=== PATIENT | female | born 1970 | race Caucasian/White ===

== ENCOUNTER 2018-01-02 19:43 | Inpatient (IN) | payer BC, OTHER ==
[2018-01-02 20:18] LABS: #Basophils 0.1 thou/uL (0.0-0.2); #Lymphocytes 1.4 thou/uL (1.20-3.40); #Monocytes 0.6 thou/uL (0.11-0.59); %Basophils 1.4 % (0.0-1.0); %Eosinophils 0.3 % (0.0-10.0); %Lymphocytes 17.4 % (21.0-51.0); %Monocytes 7.4 % (0.0-10.0); %Neutrophils 73.5 % (42.0-75.0); Hemoglobin 14.2 g/dL (12.0-16.0); Mean Corpuscular HGB CONC 32.7 g/dL (32.0-36.0); Mean Corpuscular Hemoglobin 31.7 pg (27.0-31.0); Mean Corpuscular Volume 97.2 fl (81.0-99.0); Mean Platelet Volume 8.4 fL (7.4-10.4); Platelet Count 252 thou/uL (130-400); RBC Distribution Width 12.4 % (11.5-14.5); Red Blood Cell (RBC) Count 4.47 mill/uL (4.20-5.40); White Blood Cell (WBC) Count 8.2 thou/uL (4.8-10.8)
[2018-01-02 20:27] LABS: Bilirubin Negative (Negative); Blood, Urine Negative (Negative); Clarity Clear (Clear); Glucose, Urine (Dipstick) 500 mg/dL (Negative); Leukocyte Negative (Negative); Nitrite Negative (Negative); Protein, Urine (Dipstick) Negative (Neg-Trace); Specific Gravity, Urine 1.022 (1.002-1.036); Urobilinogen 0.2 mg/dL (0.2-1.0); pH, Urine 5.5 (5.0-9.0)
[2018-01-02 20:40] LABS: CKMB 1.5 ng/mL (0-6.6); Troponin I Less than 0.010 ng/mL (< 0.028)
[2018-01-02 20:54] LABS: Glucose 163 mg/dL (70-105); Lipase 28 U/L (8-78); Phosphorus 3.3 mg/dL (2.3-4.7)
[2018-01-02 20:56] LABS: Base Excess-Venous -16.1 mmol/L (0 (+/- 2.5)); CO2 Tension (PvCO2) 29.7 mmHg (41.0-51.0); Calcium, Ionized 1.07 mmol/L (1.12-1.32); Hemoglobin - Calc 14.5 g/dL (12.0-18.0); O2 Tension (PvO2) 106.5 mmHg (35.0-45.0); Potassium 4.2 mmol/L (3.4-4.7); T. Carbon Dioxide 11.9 mmol/L (1.0-85.0); pH (Venous) 7.176 (7.35-7.45); vO2 Saturation-calc 96.6 % (94-98)
[2018-01-02 20:57] LABS: ALT (SGPT) 25 U/L (8-55); AST (SGOT) 21 U/L (5-34); Albumin 4.4 g/dL (3.5-5.0); Alkaline Phosphatase 49 U/L (40-150); Anion Gap 25 mmol/L (10-20); BUN (Urea Nitrogen) 16 mg/dL (7.0-18.7); Bilirubin, Total 0.4 mg/dL (0.2-1.2); CK (CPK) 78 U/L (29-168); Calc. Creatinine Clearance 0 mL/min (70-130); Calcium 8.9 mg/dL (7.8-10.44); Carbon Dioxide 10 mmol/L (22-29); Chloride 106 mmol/L (98-107); Estimated GFR-MDRD 70; Glucose 161 mg/dL (70-105); Potassium 4.3 mmol/L (3.5-5.1); Protein, Total 7.4 g/dL (6.0-8.3); Sodium 137 mmol/L (136-145)
[2018-01-02] MEDS ORDERED: D5 1/2 NS w/20 mEq KCL 1,000 ML ONE (21:07)
[2018-01-02] MEDS ORDERED: Insulin Regular 300 UNITS/3 ML VIAL ONE (21:07)
[2018-01-02] MEDS ORDERED: Sodium Chloride 0.9% 100 ML ONE (21:24)
[2018-01-02] MEDS ORDERED: D5 1/2 NS w/20 mEq KCL 1,000 ML IV PRN (23:14)
[2018-01-02] MEDS ORDERED: Sodium Chloride 0.9% 1,000 ML IV PRN ×4 (23:14)
[2018-01-02] MEDS ORDERED: Dextrose 5% in Water 1,000 ML IV PRN (23:14)
[2018-01-02] MEDS ORDERED: Dextrose 5 %-0.45 % NaCl 1,000 ML IV PRN (23:14)
[2018-01-02] MEDS ORDERED: NS 0.9% w/ 20 MEQ KCL 1,000 ML/1,000 ML BAG IV PRN ×2 (23:14)
[2018-01-02] MEDS ORDERED: ADD ELECTROLYTE REPLACEMENT SET TO PROFILE FS SCH (23:15)
[2018-01-02] MEDS ORDERED: Dextrose 50% Abboject 50 ML SYRINGE SLOW IVP PRN (23:31)
[2018-01-02] MEDS ORDERED: Potassium Chloride 40 MEQ in Sodium Chloride 0.9% 250 ML 250 ML IVPB PRN (23:34)
[2018-01-02] MEDS ORDERED: Magnesium 2 GM/NS 0.9% 100 ML 2 GM in Premix Bag 1 BAG IVPB PRN (23:34)
[2018-01-02] MEDS ORDERED: Potassium Phosphate 9 MMOL in Sodium Chloride 0.9% 100 ML IVPB PRN (23:34)
[2018-01-02] MEDS ORDERED: Potassium Phosphate 15 MMOL in Sodium Chloride 0.9% 250 ML 250 ML IV PRN (23:34)
[2018-01-02] MEDS ORDERED: Magnesium Oxide 400 MG TAB PO PRN ×2 (23:34)
[2018-01-02] MEDS ORDERED: CCU ELECTROLYTE REPLACEMENT PROTOCOL FS PRN (23:34)
[2018-01-02] MEDS ORDERED: Potassium Phosphate 12 MMOL in Sodium Chloride 0.9% 250 ML 250 ML IV PRN (23:34)
[2018-01-02] MEDS ORDERED: Potassium Chloride 40 MEQ in Premix Bag 1 BAG IVPB PRN (23:34)
[2018-01-02] MEDS ORDERED: Potassium Chloride 20 MEQ TAB PO PRN (23:34)
[2018-01-02] MEDS ORDERED: Acetaminophen 325 MG TAB PO PRN (23:36)
[2018-01-02] MEDS ORDERED: Ondansetron HCl/PF 4 MG/2 ML Vial IVP PRN (23:36)
[2018-01-02] MEDS ORDERED: Ondansetron ODT 4 MG TAB SL PRN (23:36)
[2018-01-03 00:42] VITALS: BMI 24.3
[2018-01-03 01:28] LABS: ALT (SGPT) 20 U/L (8-55); AST (SGOT) 18 U/L (5-34); Albumin 3.6 g/dL (3.5-5.0); Alkaline Phosphatase 45 U/L (40-150); Anion Gap 11 mmol/L (10-20); BUN (Urea Nitrogen) 13 mg/dL (7.0-18.7); Bilirubin, Total 0.4 mg/dL (0.2-1.2); Calc. Creatinine Clearance 93 mL/min (70-130); Calcium 7.9 mg/dL (7.8-10.44); Carbon Dioxide 15 mmol/L (22-29); Estimated GFR-MDRD 80; Globulin 2.3 g/dL (2.4-3.5); Glucose 159 mg/dL (70-105); Potassium 4.4 mmol/L (3.5-5.1); Protein, Total 5.9 g/dL (6.0-8.3); Sodium 135 mmol/L (136-145)
[2018-01-03 01:34] LABS: Chloride 113 mmol/L (98-107)
--- NOTE | 2018-01-03 02:31 | PDOC.FPRHP ---
- History of Present Illness Chief Complaint: DKA History of Present Illness: Farhana Nair is a 47 year old F with a PMH of DMI who presents as transfer from [facility] ED for DKA. Patient sees sewer pipe cleaner regularly and has been complaint with her medications. She is on an insulin pump and has continuous glucose monitoring. She states that she started experiencing headache, nausea, and sore throat yesterday. She checked her blood sugar and it was in the 300s which is very high for her. She also checked her ketones, which were at the highest level. She took correction dose of insulin at that time. This morning, her fasting blood sugar was in the 80s. This morning her ketones were slightly lower than yesterday but still elevated. Her symptoms worsened today and she decided she needed to go to the ED. She was communicating with her Public Health Educator yesterday via email who recommended the correction dose and recommended holding her Jardiance. Patient states that she has never had DKA or been admitted to the hospital for her diabetes and is normally very well controlled. She states that nothing has been different, she has not started taking any medications or supplements. She does exercise frequently and alot of cardio exercises yesterday prior to the onset of symptoms. She also states that one to two weeks ago she had upper respiratory like symptoms, that have since resolved, with the exception of sore throat. Denies any recent steroid use. ED Course: She was started on DKA protocol at outside ED and transferred directly to [facility], room B10. - Allergies/Adverse Reactions Allergies Allergy/AdvReac Type Severity Reaction Status Date / Time Sulfa (Sulfonamide Allergy ITCHING Verified 01/02/18 23:22 Antibiotics) - Home Medications Medication Instructions Recorded Confirmed Type Aspirin [Aspirin Chewable] 81 mg PO DAILY 01/03/18 01/03/18 History Empagliflozin [Jardiance] 5 mg PO DAILY 01/03/18 01/03/18 History HumaLOG [HumaLOG] 10.7 unit SC DAILY 01/03/18 01/03/18 History Lactobacillus Acidophilus 1 capsule PO DAILY 01/03/18 01/03/18 History [Probiotic] Multivitamin [Daily Multiple 1 each PO DAILY 01/03/18 01/03/18 History Vitamin] Rosuvastatin [Crestor] 10 mg PO DAILY 01/03/18 01/03/18 History Ubidecarenone [Co Q-10] 10 mg PO DAILY 01/03/18 01/03/18 History Vitamin B Complex 1 cap PO DAILY 01/03/18 01/03/18 History - History PMHx: DMI, HLD PSHx: none FHx: DMI, brother Social: Denies tobacco, alcohol, drug use - Review of Systems General: reports: other (headache). denies: fever/chills, weight/appetite/ sleep changes, night sweats, fatigue Eyes: denies: eye pain, vision changes ENT: reports: other (sore throat). denies: nasal congestion, rhinorrhea Respiratory: denies: cough, congestion, shortness of breath, exercise intolerance Cardiovascular: denies: chest pain, palpitation, edema, paroxysmal nocturnal dyspnea, orthopnea Gastrointestinal: reports: nausea, abdominal pain. denies: vomiting, diarrhea, constipation Genitourinary: denies: incontinence, dysuria, polyuria Skin: denies: rashes, lesions, jaundice Musculoskeletal: denies: pain, tenderness, stiffness, swelling Neurological: denies: numbness, syncope, seizure, weakness Psychological: denies: anxiety, depression - Vital signs BP: 93/38 HR: 77 RR: 16 Tmax: 97.9 Pox: 97% on RA Wt: 66 kg - Physical Exam Constitutional: NAD, awake, alert and oriented, well developed HEENT: normocephalic and atraumatic, PERRLA, EOMI, conjunctiva clear, no scleral icterus, grossly normal vision, TM's clear and intact, grossly normal hearing, normal nasal mucosa, MMM, oropharynx clear, good dention Neck: supple, FROM, trachea midline, no LAD, no JVD Chest: no-tender to palpation Heart: RRR, normal S1/S2, no murmurs/rubs/gallops, pulses present, no edema Lungs: CTAB, no respiratory distress, good air movement, no rales/rhonchi Abdomen: soft, non-tender, bowel sounds present, no masses/distention Musculoskeletal: normal structure, normal tone, ROM grossly normal Neurological: no focal deficit, CN II-XII intact, normal sensation Skin: no rash/lesions, good turgor, capillary refill <2 seconds Heme/Lymphatic: no unusual bruising or bleeding, no purpura, no petechia Psychiatric: normal mood and affect, good judgment and insight, intact recent and remote memory FMR H&P: Results - Labs Result Diagrams: 01/02/18 20:11 01/03/18 16:12 Lab results: WBC 8.2 thou/uL (4.8-10.8) 01/02/18 20:11 Hgb 14.2 g/dL (12.0-16.0) 01/02/18 20:11 Hct 43.4 % (36.0-47.0) 01/02/18 20:11 MCV 97.2 fl (81.0-99.0) 01/02/18 20:11 Plt Count 252 thou/uL (130-400) 01/02/18 20:11 Neutrophils % 73.5 % (42.0-75.0) 01/02/18 20:11 VBG pCO2 29.7 mmHg (41.0-51.0) L 01/02/18 20:54 VBG pO2 106.5 mmHg (35.0-45.0) H 01/02/18 20:54 Sodium 135 mmol/L (136-145) L 01/03/18 01:04 Potassium 4.4 mmol/L (3.5-5.1) 01/03/18 01:04 Chloride 113 mmol/L (98-107) H 01/03/18 01:04 Carbon Dioxide 15 mmol/L (22-29) L 01/03/18 01:04 BUN 13 mg/dL (7.0-18.7) 01/03/18 01:04 Creatinine 0.77 mg/dL (0.6-1.1) 01/03/18 01:04 Glucose 159 mg/dL (70-105) H 01/03/18 01:04 Calcium 7.9 mg/dL (7.8-10.44) 01/03/18 01:04 Total Bilirubin 0.4 mg/dL (0.2-1.2) 01/03/18 01:04 AST 18 U/L (5-34) 01/03/18 01:04 ALT 20 U/L (8-55) 01/03/18 01:04 Alkaline Phosphatase 45 U/L (40-150) 01/03/18 01:04 Creatine Kinase 78 U/L (29-168) 01/02/18 20:31 CK-MB (CK-2) 1.5 ng/mL (0-6.6) 01/02/18 20:11 B-Natriuretic Peptide 65.8 pg/mL (0-100) 01/02/18 20:11 Serum Total Protein 5.9 g/dL (6.0-8.3) L 01/03/18 01:04 Albumin 3.6 g/dL (3.5-5.0) 01/03/18 01:04 Lipase 28 U/L (8-78) 01/02/18 20:31 Urine Ketones > or equal to 80 mg/dL (Negative) H 01/02/18 20:12 Urine Blood Negative (Negative) 01/02/18 20:12 Urine Nitrite Negative (Negative) 01/02/18 20:12 Ur Leukocyte Esterase Negative (Negative) 01/02/18 20:12 FMR H&P: A/P - Problem List (1) Diabetic ketoacidosis associated with type 1 diabetes mellitus Current Visit: Yes Status: Acute Code(s): E10.10 - TYPE 1 DIABETES MELLITUS WITH KETOACIDOSIS WITHOUT COMA (2) Hyperlipidemia Current Visit: Yes Status: Chronic Code(s): E78.5 - HYPERLIPIDEMIA, UNSPECIFIED - Plan (1) DKA - Initial anion gap of 21, glucose 161, K 4.3, urine ketones >80, ur glucose > 500, beta hydroxybutarate of 8.08 - Admit to IMCU - Possible cause could be recent URI vs elevated cortisol levels from recent strenuous exercise - Started on DKA protocol - Will continue q1h accuchecks - Continue q4h BMP (2) TIDM - Continue home regimen once gap closes - Continue home statin - Hold home jardiance CODE STATUS: FULL CODE Disposition/LOS: Admit to IMCU, anticipate discharge home after >48 admission FMR H&P: Upper Level - Pertinent history PCP: Loyd Patient is a 47yo CF with PMHx of T1DM and HLD who was transferred from [facility] ED for elevated blood sugars. States that yesterday her blood sugar was 324, which is very high for her. Emailed her sewer pipe cleaner who instructed her to give herself 2 correction doses and drink a lot of water. She also checked her ketones at that time and they were extremely high. Later that night her BS improved to 141 and her fasting sugar this AM was 86. However, her ketones continue to be high. She went to work but decided to not work out and had worsening symptomsnausea, VILLANUEVA, sore throat and racing HR. Denies any recent illness, fever, chills, N/V, diarrhea, cough, nasal congestion. Patient has an insulin pump and continuous glucose monitor. Her home basal dose is 10.7u qD [facility] ED: NS 1L bolus x2, D5-0.45%NaCl +K @ 250cc/hr, novolin R 6 units/hr - Pertinent findings T 98.3 BP 115/44 HR 88 RR 20 O2 97% on RA Wt. 68kg General: NAD, resting in bed HEENT: Heart: S1 S2, RRR Lungs: CTAB Abd: soft, NT/ND/BS+ Ext: no cyanosis or edema UA: + ketones, + glucose Beta-hydroxybutyrate: 8.08 A VB.176/29.7/106.5/10 - Plan Date/Time: 01/03/18222 1. DKA: Etiology unclear as no infectious source and insulin pump working properly. Compared her glucose monitor to our accuchecks and appropriate. Likely 2/2 overexertion from exercise. Cont DKA protocol. Accuchecks with self glucose monitor q1h. BMP q4H. 2. T1DM: cont home insulin pump and regimen once #1 resolved. Holding home jardiance as well. 3. HLD: cont home crestor. 4. Diet: NPO/CC 5. PPx: SCDs 6. Code Status: Full I, Peri Bull, have evaluated this patient and agree with findings/ plan as outlined by international recruiter resident. Pertinent changes/additions are listed here. Attending Addendum - Attending Addendum Date/Time: 01/03/182050 I personally evaluated the patient and discussed the management with Dr. Flynn and Dr. Bull. I agree with the History, Examination, Assessment and Plan documented above with any addition or exceptions noted below. 47 yo IDDM on continuous glucose and insulin infusion presents for admission due to DKA. Etiology unknown at this time. No significant s/sx of infection. Pump appears to be working. Has been started on new DM medication recently. Possible culprit. Will stop personal pump at this time. Continue insulin drip and protocol. Trend labs q 2 to 4 hours. Repeat ketones. Monitor closely. Will discuss case with rachael in AM. Rosa
[2018-01-03 06:36] LABS: Anion Gap 11 mmol/L (10-20); BUN (Urea Nitrogen) 8 mg/dL (7.0-18.7); Calc. Creatinine Clearance 95 mL/min (70-130); Calcium 7.9 mg/dL (7.8-10.44); Carbon Dioxide 14 mmol/L (22-29); Chloride 114 mmol/L (98-107); Estimated GFR-MDRD 82; Glucose 180 mg/dL (70-105); Potassium 4.2 mmol/L (3.5-5.1); Sodium 135 mmol/L (136-145)
[2018-01-03] MEDS: Ubidecarenone 50 MG CAP PO SCH (09:51)
[2018-01-03] MEDS: Rosuvastatin 10 MG TAB PO SCH (09:52)
[2018-01-03] MEDS: Stress 600 With Zinc 1 TAB PO SCH (09:52)
[2018-01-03] MEDS: Multivit, Therapeutic 1 TAB PO SCH (09:52)
[2018-01-03 11:06] LABS: Anion Gap 9 mmol/L (10-20); BUN (Urea Nitrogen) 7 mg/dL (7.0-18.7); Calc. Creatinine Clearance 99 mL/min (70-130); Calcium 8.2 mg/dL (7.8-10.44); Carbon Dioxide 18 mmol/L (22-29); Chloride 114 mmol/L (98-107); Estimated GFR-MDRD 86; Glucose 171 mg/dL (70-105); Sodium 137 mmol/L (136-145)
[2018-01-03] MEDS ORDERED: Insulin Glargine 5 UNITS in Pre-Filled Syringe 1 EACH SC SCH (11:45)
--- NOTE | 2018-01-03 11:46 | PDOC.FM ---
- Subjective Subjective: Patient resting comfortably this morning in no acute distress. Her labs have normalized at this time. She has been in contact with her vegetable specker who recommends stopping Jardiance. VSS, afebrile - Objective MAR Reviewed: Yes Vital Signs & Weight: Vital Signs (12 hours) Temp Pulse Resp BP BP Pulse Ox 01/03/18 08:01 97.7 F 75 21 H 92/49 L 100 01/03/18 08:00 97.7 F 75 21 H 100 01/03/18 03:57 97.8 F 79 17 92/44 L 95 01/03/18 01:00 73 16 99/39 L 99 Weight Weight 66.451 kg I&O: 01/02/18 01/03/18 01/04/18 06:59 06:59 06:59 Intake Total 1850 1340 Output Total 2400 0 Balance -550 1340 Result Diagrams: 01/02/18 20:11 01/03/18 10:28 <Jose Grajeda - Last Filed: 01/03/18 11:45> - Objective Vital Signs & Weight: Vital Signs (12 hours) Temp Pulse Resp BP BP Pulse Ox 01/03/18 11:48 98.5 F 71 21 H 100/46 L 98 01/03/18 08:01 97.7 F 75 21 H 92/49 L 100 01/03/18 08:00 97.7 F 75 21 H 100 01/03/18 03:57 97.8 F 79 17 92/44 L 95 Weight Weight 66.451 kg I&O: 01/02/18 01/03/18 01/04/18 06:59 06:59 06:59 Intake Total 1850 2480 Output Total 2400 2300 Balance -550 180 Result Diagrams: 01/02/18 20:11 01/03/18 10:28 <Rey Harris - Last Filed: 01/03/18 14:57> Phys Exam - Physical Examination Constitutional: NAD HEENT: moist MMs Neck: no nodes Respiratory: no wheezing, no rales Cardiovascular: RRR, no significant murmur Gastrointestinal: soft, non-tender Neurological: moves all 4 limbs Psychiatric: normal affect, A&O x 3 Skin: no rash <Jose Grajeda - Last Filed: 01/03/18 11:45> Dx/Plan (1) DKA (diabetic ketoacidoses) Code(s): E13.10 - OTH DIABETES MELLITUS WITH KETOACIDOSIS WITHOUT COMA Status : Resolved QualifierTitle: Diabetes mellitus type: type 2 Diabetes mellitus complication detail: without coma Qualified Code(s): E11.10 - Type 2 diabetes mellitus with ketoacidosis without coma Plan: -anion gap of 21, Beta hydroxybutyrate of 8 at outside facility -given insulin and 2L NS -patients gap closed overnight with the rest of her BMP remaining normal -BS of 150-180 overnight -no malfunctions in insulin pump, equipped with continuous glucose monitoring -likely etiology is 2/2 to medication, per endocrinology (2) DMII (diabetes mellitus, type 2) Status: Chronic Plan: -will cover with Lantus 5u and allow patient to eat -turn insulin drip off s/p 2 hours after insulin -will speak with her normal vegetable specker in the [place] to see how best to dose insulin (3) Hyperlipidemia Code(s): E78.5 - HYPERLIPIDEMIA, UNSPECIFIED Status: Chronic Plan: continue crestor <Jose Grajeda - Last Filed: 01/03/18 11:45> Attending Addendum - Attending Addendum Date/Time: 01/03/18 0617 I personally evaluated the patient and discussed the management with Dr. Grajeda. I agree with and repeated the History, Examination, Assessment and Plan documented above with any addition or exceptions noted below. Very pleasant patient and very knowledgeable of her diagnosis and treatment. Likely Jardiance induced DKA. Continue gtt, give lantus and transition. Will attempt to contact her primary vegetable specker. <Rey Harris - Last Filed: 01/03/18 14:57>
[2018-01-03] MEDS: Ibuprofen 800 MG TAB PO PRN ×2 (13:09→21:27)
[2018-01-03] MEDS: Sodium Chloride 0.45% 1,000 ML IV SCH (13:10)
[2018-01-03 14:43] LABS: Bilirubin Negative (Negative); Blood, Urine Negative (Negative); Clarity CLEAR (Clear); Glucose, Urine (Dipstick) 500 mg/dL (Negative); Leukocyte Negative (Negative); Nitrite Negative (Negative); Protein, Urine (Dipstick) Negative (Neg-Trace); Specific Gravity, Urine 1.009 (1.002-1.036); Urobilinogen 0.2 mg/dL (0.2-1.0); pH, Urine 5.5 (5.0-9.0)
[2018-01-03 16:39] LABS: Anion Gap 10 mmol/L (10-20); BUN (Urea Nitrogen) 7 mg/dL (7.0-18.7); Calc. Creatinine Clearance 108 mL/min (70-130); Calcium 8.2 mg/dL (7.8-10.44); Carbon Dioxide 19 mmol/L (22-29); Chloride 111 mmol/L (98-107); Estimated GFR-MDRD Greater than 90; Glucose 140 mg/dL (70-105); Potassium 3.9 mmol/L (3.5-5.1); Sodium 136 mmol/L (136-145)
--- NOTE | 2018-01-03 20:38 | CON ---
DATE OF CONSULTATION: 01/03/2018 SERVICE: Pulmonary Medicine. REASON FOR CONSULT: IMCU patient. HISTORY OF PRESENT ILLNESS: The patient is a 47-year-old white female who had 1-2 day history of inc reasing nausea and little aversion for food. She continued taking some of her medications. Her bloo d sugars started reading high. She tested her ketones at home and they were also elevated. She trie d to take the correction. The next morning, things will not quite as bad, but she felt worse clinica lly. As such, she presented to the emergency department. She was found to be in DKA. She was start ed on insulin drip. Overnight, her acidosis, nausea, and headache have all resolved. She is essenti ally back to her usual state of health. She does not have any focalizing infectious symptoms. She d enies any purulent drainage from her eyes, ears, nose or throat. She is not having a cough. She has no dyspnea with exertion. There is no orthopnea there. She is not having any chest discomfort or t achyarrhythmias. She does not have any hot, red, swollen joints, or new rashes. She denies having d ysuria or vaginal discharge. She indicates that she cannot get . PAST MEDICAL HISTORY: 1. Diabetes mellitus, type 1. 2. Dyslipidemia. PAST SURGICAL HISTORY: None. FAMILY HISTORY: Type 1 diabetes mellitus in her brother. SOCIAL HISTORY: Negative for alcohol, tobacco or illicit drug use. She has no exposure to chemicals , dust asbestos or tuberculosis. ALLERGIES: SULFA. MEDICATIONS: List of her inpatient medications were reviewed and heavily modified. PHYSICAL EXAMINATION: VITAL SIGNS: Afebrile, pulse 71, blood pressure 100/46, respirations 21, saturation 98% on room air. GENERAL: The patient is awake, alert, no apparent distress. LUNGS: Excellent air entry. There is no prolonged expiratory phase, wheeze, rhonchi, or crackles pr esent. HEART: Normal rate and regular. ABDOMEN: Soft, nontender, nondistended. Bowel sounds are positive. MUSCULOSKELETAL: No cyanosis or clubbing. No pitting in the bilateral lower extremities. NEUROLOGIC: Grossly nonfocal. LABORATORY DATA: BNP and troponin are both unremarkable. Originally, she had an elevated anion gap and a very low bicarbonate. The bicarbonate is trending in a good direction, chloride is up trending . Sodium is now normal. Anion gap has resolved. Creatinine 0.72 was never elevated. Liver functio n studies are unremarkable. Urinalysis is positive for ketonuria and glycosuria. Beta hydroxybutyri c acid 8.08. ASSESSMENT: 1. Diabetic ketoacidosis, likely secondary to viral gastroenteritis. 2. Headache, resolved. PLAN: The patient has a closed gap. She continues to have a persistent non-gap acidosis, likely sec ondary to IV fluid resuscitation. Her IV fluids will be deescalated to half normal saline at 50 mL p er hour. She can reinitiate her basal on her pump. We will increase diet as tolerated. Pulmonary w ill continue to follow along. I will repeat chemistries in roughly 6 hours to make certain that her gap is not opening back up.
[2018-01-04 05:31] LABS: Anion Gap 11 mmol/L (10-20); BUN (Urea Nitrogen) 11 mg/dL (7.0-18.7); Calc. Creatinine Clearance 115 mL/min (70-130); Carbon Dioxide 21 mmol/L (22-29); Chloride 111 mmol/L (98-107); Estimated GFR-MDRD Greater than 90; Glucose 166 mg/dL (70-105); Potassium 3.9 mmol/L (3.5-5.1); Sodium 139 mmol/L (136-145)
--- NOTE | 2018-01-04 06:51 | PDOC.FM ---
- Subjective Subjective: Pt seen at bedside in NAD. DEEPAK overnight. Pt notes she feels very well and denies VILLANUEVA, CP, SOB, abd pain, NVD. - Objective MAR Reviewed: Yes Vital Signs & Weight: Vital Signs (12 hours) Temp Pulse Resp BP Pulse Ox 01/04/18 04:00 97.9 F 61 18 95/58 L 98 01/04/18 00:00 97.9 F 66 18 104/63 96 01/03/18 20:00 98.1 F 73 18 108/67 96 Weight Weight 66.451 kg I&O: 01/02/18 01/03/18 01/04/18 06:59 06:59 06:59 Intake Total 1850 2840 Output Total 2400 2300 Balance -550 540 Result Diagrams: 01/02/18 20:11 01/04/18 04:20 <Margarito Crawford - Last Filed: 01/04/18 08:02> - Objective Vital Signs & Weight: Vital Signs (12 hours) Temp Pulse Resp BP Pulse Ox 01/04/18 08:00 98.5 F 64 20 96/50 L 98 01/04/18 04:00 97.9 F 61 18 95/58 L 98 01/04/18 00:00 97.9 F 66 18 104/63 96 Weight Weight 66.451 kg I&O: 01/03/18 01/04/18 01/05/18 06:59 06:59 06:59 Intake Total 1850 2840 Output Total 2400 2300 Balance -550 540 Result Diagrams: 01/02/18 20:11 01/04/18 04:20 <Rey Harris - Last Filed: 01/04/18 09:27> Phys Exam - Physical Examination Constitutional: NAD HEENT: moist MMs Respiratory: no wheezing, no rales, clear to auscultation bilateral Cardiovascular: RRR, no significant murmur Gastrointestinal: soft, non-tender Musculoskeletal: no edema Neurological: moves all 4 limbs Psychiatric: normal affect, A&O x 3 <Margarito Crawford - Last Filed: 01/04/18 08:02> Dx/Plan (1) Ketosis due to diabetes Code(s): E13.10 - OTH DIABETES MELLITUS WITH KETOACIDOSIS WITHOUT COMA Status : Acute Plan: -pt presented with normoglycemic ketosis and ketonuria -pt has been transitioned from insulin gtt back to home regimen insulin pump -glucose continues to be 140-180 -outpt division traffic superintendent recommended discontinuing jardiance -per endocrine recommendations, ketonuria has resolved so pt likely over acute episode (2) Hyperlipidemia Code(s): E78.5 - HYPERLIPIDEMIA, UNSPECIFIED Status: Chronic Plan: -continue statin - Plan Plan: dispo: Pt stable and doing well. Normoglycemic ketosis and ketonuria has resolved. Discharge home today, discontinue jardiance. <Margarito Crawford - Last Filed: 01/04/18 08:02> Attending Addendum - Attending Addendum Date/Time: 01/04/18926 I personally evaluated the patient and discussed the management with Dr. Crawford. I agree with and repeated the History, Examination, Assessment and Plan documented above with any addition or exceptions noted below. Ok for discharge with close follow up. <Rey Harris - Last Filed: 01/04/18 09:27>
[2018-01-04] MEDS: Multivit, Therapeutic 1 TAB PO SCH (07:50)
[2018-01-04] MEDS: Rosuvastatin 10 MG TAB PO SCH (07:50)
[2018-01-04] MEDS: Ubidecarenone 50 MG CAP PO SCH (07:53)
[2018-01-04] MEDS: Stress 600 With Zinc 1 TAB PO SCH (07:54)
[2018-01-04] MEDS: Sodium Chloride 0.45% 1,000 ML IV SCH (07:54)
[2018-01-04 08:14] VITALS: BP 96/50; TEMP 98.5
== END 2018-01-04 10:18 | disposition home or self-care (01) | DRG 639 ==
LOC: SCSER 19:43 → IMCU/EMU 22:55 → T4-A 01-03 17:48
PROVIDERS: ADMIT Student in an Organized Health Care Education/Training Program; ATTEND Student in an Organized Health Care Education/Training Program
DX: E10.10 Type 1 diabetes mellitus with ketoacidosis without coma (principal); E78.5 Hyperlipidemia, unspecified; A08.4 Viral intestinal infection, unspecified; R51 Headache
CPT/HCPCS: 36415; 36416; 80048; 80053; 81003; 82010; 82330; 82550; 82553; 82803; 83690; 83735; 83880; 84100; 84484; 85025; 85379; 93005; 94760; 96361; 96365; A4216; J1815; J7050

== ENCOUNTER 2019-04-22 13:05 | Observation (INO) | payer BC ==
[2019-04-22] MEDS ORDERED: Sodium Chloride 0.9% 1,000 ML IV SCH ×3 (13:30→18:00)
--- NOTE | 2019-04-22 15:14 | PDOC.FPRHP ---
- History of Present Illness Chief Complaint: Chest Tightness History of Present Illness: Mrs. Nair is a 48 y/o female with a history of DM1 controlled with an insulin pump and difficult to treat GERD who presents via direct-admit from [place] for evaluation of "chest tightness". During her work-up in [place], an initial EKG was negative but her blood glucose was found to be moderately elevated, nearing 400, thus clouding the picture on whether she was more at risk for ACS or DKA. When she got to the floor, a second EKG was ordered which showed no abnormalities, and her first round of troponins was negative. She denied any worrisome cardiopulmonary symptoms, as well as fevers, chills, abdominal pain, N/V/D. - Allergies/Adverse Reactions Allergies Allergy/AdvReac Type Severity Reaction Status Date / Time Sulfa (Sulfonamide Allergy ITCHING Verified 01/02/18 23:22 Antibiotics) - Home Medications Medication Instructions Recorded Confirmed Type Aspirin Chewable [Aspirin Chewable 81 mg PO DAILY 01/03/18 04/22/19 History Tablet] HumaLOG [HumaLOG Vial] 10.7 unit SC SEEPHYS 01/03/18 04/22/19 History Multivitamin [Daily Multiple 1 each PO DAILY 01/03/18 04/22/19 History Vitamin] Rosuvastatin [Crestor] 5 mg PO DAILY 01/03/18 04/22/19 History Vitamin B Complex 1 cap PO DAILY 01/03/18 04/22/19 History HumaLOG 0 unit SC TID-WM PRN 04/22/19 04/22/19 History Pantoprazole Sodium 40 mg PO DAILY 04/22/19 04/22/19 History Zantac 150 mg PO PRN PRN 04/22/19 04/22/19 History - History PMHx: DM1, GERD PSHx: Tubal Ligation FHx: Non-Contributory Social: Patient admits to social EtOH abuse, but denies tobacco and drug abuse. - Review of Systems General: reports: fever/chills, weight/appetite/sleep changes, night sweats Eyes: denies: vision changes ENT: reports: nasal congestion. denies: rhinorrhea Respiratory: denies: cough, congestion, shortness of breath, exercise intolerance Cardiovascular: reports: chest pain (Patient describes her chest pain as a "tightness", and compares it to a pervious episode of GERD). denies: palpitation, edema Gastrointestinal: denies: nausea, vomiting, diarrhea, constipation, abdominal pain, GI bleeding Genitourinary: reports: polyuria (Patient also admits to polydipsia). denies: incontinence, dysuria, discharge Skin: denies: rashes, lesions Musculoskeletal: denies: pain, stiffness, swelling Neurological: denies: numbness, seizure Psychological: denies: anxiety, depression - Vital signs BP: [100/52] HR: [65] RR: [20] Tmax: [97.9] Pox: [100]% on [Room] Wt: [75 kg] - Physical Exam Constitutional: NAD, awake, alert and oriented, well developed HEENT: normocephalic and atraumatic, PERRLA, EOMI, conjunctiva clear, no scleral icterus, grossly normal vision, grossly normal hearing, normal nasal mucosa -HEENT: Patient appeared to have dry mucous membranes Neck: supple, FROM, trachea midline, no LAD Chest: no-tender to palpation, no lesions Heart: RRR, normal S1/S2, no murmurs/rubs/gallops, pulses present Lungs: CTAB, no respiratory distress, good air movement, no rales/rhonchi Abdomen: soft, non-tender, no masses/distention Musculoskeletal: normal structure, normal tone, ROM grossly normal Neurological: no focal deficit, CN II-XII intact Skin: no rash/lesions -Skin: Cap Refill > 2 Seconds Heme/Lymphatic: no purpura, no petechia Psychiatric: normal mood and affect, good judgment and insight, intact recent and remote memory FMR H&P: A/P - Plan 1. DKA vs. ACS -Patient appears with difficult to describe feelings of "chest tightness" -Other more serious signs of cardiopulmonary compromise were negative - no N/V, changes in vision, SOB or syncopal episodes -No significant risk factors or FHx, other than DM1 -EKG performed in [place] was negative -Repeat EKG at [facility] was negative -Trops: Negative x1 -BG: ~400 -Patient was placed on moderate fluid resuscitation with NS -Patient was advised to utilize insulin pump within normal settings -2nd & 3rd Trops: Pending -UA: Pending -TSH: Pending -Lipid Panel: Pending -FSH: Pending -LH: Pending -Necessary to rule out other more worrisome causes of DKA prior to DC Code: Full Diet: CC Activity: As Tolerated Dispo: Patient most likely suffering from mild or already resolved DKA, admitted for Observation. Minimal fluid resuscitation started with advice to use insulin pump. Carbohydrate Conscious diet initiated with ambulation as tolerated. CMP appears within normal limits. Expected LOS < 24H FMR H&P: Upper Level - Pertinent history 48yo F with pmh of DM1 on pump, and esophagitis presents as direct admit for observation from clinic for hyperglycemia and hypovolemia. Reports hx of increased BG since she has had increased GERD symtpoms. Reports polydipsia and polyuria. Pt had BG over 300 in PCP clinic and ketones in urine and so pt presented to outside ER for stat labwork. There she was found to have normal anion gap and betahydroxybutyrate of 0.35. Pt also complains of worsening symptoms of GERD. Describes chest tightness. Currently she feels it is minimal. No SOB. EKG in PCP office was wnl. She has had EGD recently which showed esophagitis. Pt had not been taking protonix but last night restarted her home protonix and has sucralfate listed as home med as well. She has plans for esophageal pH testing on May 12. PMH: GERD, DM1 FHx: Grandfather and great grandfather had "heart issues" but did not of ND - Pertinent findings Physical exam: significant for somewhat reproducible chest tightness on chest wall palpation. Cracked lips. Vitals: reviewed and wnl Pertinent labs and testing: EKG wnl outpt, BG 295, K 4.3, Na 136, Chloride 101, bicarb 26, Cr 0.84 - Plan Date/Time: 04/22/19 1514 Hyperglycemia A- Pt uncontrolled currently on pump regimen that was previously controlled just a few hours ago. On most recent check BG in 100s range. No changes in diet. Etiology unclear , will have to workup. Pt is not menopausal but has tubes tied. P- will resume insulin via pump -agressive fluid ressusitation -BMP now and q3H -BG q1H -UA Chest pain, likely 2/2 GERD A- this has been a known problem that has worsened over the last month. Pt follows with cardiology. EKG in outside office wnl. HEART score 2. mildy reproducible on exam. P- repeat EKG -CXR -troponins -Protonix 40mg BID -GI cocktail now -sucralfate Dehydration A- as seen on physical exam. P- fluid resuscitation as above CODE: FULL PCP: Erick Duke pgy 2, have evaluated this patient and agree with findings/ plan as outlined by qa intern resident. Pertinent changes/additions are listed here.
[2019-04-22 15:17] VITALS: BMI 27.4
[2019-04-22 15:49] LABS: Troponin I Less than 0.010 ng/mL (< 0.028)
[2019-04-22] MEDS ORDERED: Acetaminophen 325 MG TAB PO PRN (16:42)
[2019-04-22] MEDS ORDERED: Ondansetron ODT 4 MG TAB PO PRN (16:42)
[2019-04-22] MEDS: Sodium Chloride 0.9% 1,000 ML IV SCH ×3 (17:53→20:39)
[2019-04-22] MEDS ORDERED: Mag-Al 1200 mg/1200 mg/30 ML UDCUP PO PRN (18:24)
[2019-04-22] MEDS ORDERED: Calcium Carbonate 500 MG ChewTAB PO PRN (18:24)
[2019-04-22 18:25] LABS: Troponin I Less than 0.010 ng/mL (< 0.028)
[2019-04-22] MEDS: Famotidine 20 MG TAB PO SCH (19:11)
[2019-04-22 19:25] LABS: Bilirubin Negative (Negative); Blood, Urine Negative (Negative); Clarity Clear (Clear); Glucose, Urine (Dipstick) Normal (Negative); Leukocyte Negative Leu/uL (Negative); Nitrite Negative (Negative); Protein, Urine (Dipstick) Negative (Neg-Trace); RBC/HPF 0-3 HPF (0-3); Squamous Epithelial 0-3 HPF (0-3); Urobilinogen Normal mg/dL (Less than 2); WBC/HPF 0-3 HPF (0-3)
[2019-04-22 19:32] LABS: Bacteria/HPF 1+ HPF (None Seen)
[2019-04-22 20:36] LABS: ALT (SGPT) 16 U/L (8-55); AST (SGOT) 17 U/L (5-34); Alkaline Phosphatase 52 U/L (40-150); Anion Gap 11 mmol/L (10-20); BUN (Urea Nitrogen) 12 mg/dL (7.0-18.7); Bilirubin, Total 0.4 mg/dL (0.2-1.2); Calc. Creatinine Clearance 102 mL/min (70-130); Carbon Dioxide 26 mmol/L (22-29); Chloride 106 mmol/L (98-107); Estimated GFR-MDRD 78; Globulin 2.6 g/dL (2.4-3.5); Glucose 151 mg/dL (70-105); Potassium 3.8 mmol/L (3.5-5.1); Protein, Total 6.6 g/dL (6.0-8.3); Sodium 139 mmol/L (136-145)
[2019-04-22] MEDS ORDERED: HumaLOG 300 UNITS/3 ML VIAL SC SCH (21:00)
[2019-04-22] MEDS ORDERED: Aspirin Chewable 81 MG TAB PO SCH (22:00)
[2019-04-22] MEDS ORDERED: Multivitamin W/ Minerals 1 TAB PO SCH (22:00)
[2019-04-22] MEDS: Rosuvastatin 10 MG TAB PO SCH (22:01)
[2019-04-22] MEDS: Stress 600 With Zinc 1 TAB PO SCH (22:02)
[2019-04-23] MEDS: Sodium Chloride 0.9% 1,000 ML IV SCH ×3 (03:04→17:58)
--- NOTE | 2019-04-23 04:16 | PDOC.FM ---
- Subjective Subjective: She did well overnight. Her blood sugars have come down 80s-150s. She is using her pump. She does not have the chest tightness, but she has not eaten breakfast this morning. She has a JEAN test scheduled in May. BM: 2 days ago. - Objective MAR Reviewed: Yes Vital Signs & Weight: Vital Signs (12 hours) Temp Pulse Resp BP Pulse Ox 04/23/19 02:35 97 04/22/19 23:59 98.2 F 67 20 95/53 L 97 04/22/19 19:35 97.7 F 67 21 H 97/52 L 99 Weight Weight 74.899 kg I&O: 04/21/19 04/22/19 04/23/19 06:59 06:59 06:59 Intake Total 1000 Balance 1000 Result Diagrams: 04/23/19 05:46 04/23/19 05:46 Phys Exam - Physical Examination Constitutional: NAD HEENT: PERRLA, moist MMs, oral pharynx no lesions Neck: supple, full ROM Respiratory: clear to auscultation bilateral Cardiovascular: RRR, no significant murmur Gastrointestinal: soft, non-tender, positive bowel sounds Musculoskeletal: no edema, pulses present Neurological: moves all 4 limbs Psychiatric: normal affect, A&O x 3 Skin: no rash, normal turgor Dx/Plan (1) Chest pain Code(s): R07.9 - CHEST PAIN, UNSPECIFIED Status: Acute (2) GERD (gastroesophageal reflux disease) Code(s): K21.9 - GASTRO-ESOPHAGEAL REFLUX DISEASE WITHOUT ESOPHAGITIS Status: Acute (3) DM type 1 (diabetes mellitus, type 1) Status: Acute (4) Dehydration Code(s): E86.0 - DEHYDRATION Status: Acute - Plan Plan: Pt is a 48 yo F with history of DMI and GERD who presents for "chest tightness" that has worsened over the last month. 1. Chest pain, likely 2/2 GERD known problem of "chest tightness" that has worsened over the last month. Pt follows with cardiology. * No significant risk factors or FHx, other than DM1 * HEART score 2 * Pain mildy reproducible on exam. * EKG: [place] wnl & [place] wnl * Trops: <.01 x2 * Protonix 40mg BID * GI cocktail now * sucralfate * Lipid panel: Trig 71, chol 136, LDL 63, HDL 59 * GI f/u oupt recommended 2. Dehydration Present on Physical exam * fluid resuscitation with NS @ 150 * Will monitor 3. DMI Admission B * Using insulin pump * BGs: 80s- 150s * UA: 1+ Lisa 4. GERD * Pepcid Code Status: Full Diet: CC DVT Prophylaxis: Lovenox Activity: As Tolerated PCP: Loyd Dispo: D/c today if bg remain under control.
[2019-04-23 06:18] LABS: #Eosinphils 0.2 thou/uL (0.0-0.7); #Lymphocytes 1.9 thou/uL (1.20-3.40); #Monocytes 0.6 thou/uL (0.11-0.59); #Neutrophils 2.8 thou/uL (1.40-6.50); %Basophils 0.7 % (0.0-1.0); %Eosinophils 3.8 % (0.0-10.0); %Lymphocytes 34.4 % (21.0-51.0); Hemoglobin 12.5 g/dL (12.0-16.0); Mean Corpuscular HGB CONC 32.9 g/dL (32.0-36.0); Mean Corpuscular Hemoglobin 31.7 pg (27.0-31.0); Mean Corpuscular Volume 96.4 fL (78.0-98.0); Mean Platelet Volume 7.6 fL (7.4-10.4); Platelet Count 241 thou/uL (130-400); RBC Distribution Width 12.1 % (11.5-14.5); Red Blood Cell (RBC) Count 3.95 mill/uL (4.20-5.40); White Blood Cell (WBC) Count 5.6 thou/uL (4.8-10.8)
[2019-04-23 06:46] LABS: ALT (SGPT) 15 U/L (8-55); AST (SGOT) 20 U/L (5-34); Albumin 3.4 g/dL (3.5-5.0); Alkaline Phosphatase 39 U/L (40-150); Anion Gap 11 mmol/L (10-20); BUN (Urea Nitrogen) 12 mg/dL (7.0-18.7); Bilirubin, Total 0.4 mg/dL (0.2-1.2); Calc. Creatinine Clearance 117 mL/min (70-130); Calcium 8.2 mg/dL (7.8-10.44); Carbon Dioxide 22 mmol/L (22-29); Cardiac Risk 2.3 (Less than 4.5); Chloride 111 mmol/L (98-107); Cholesterol 136 mg/dl (< 200 Desired); Estimated GFR-MDRD 89; Globulin 2.3 g/dL (2.4-3.5); Glucose 89 mg/dL (70-105); HDL Cholesterol 59 mg/dL (>60 Neg Risk); LDL Cholesterol, Calculated 63 mg/dL; Potassium 4.3 mmol/L (3.5-5.1); Protein, Total 5.7 g/dL (6.0-8.3); Sodium 140 mmol/L (136-145); Triglycerides 71 mg/dL (Less than 150)
[2019-04-23] MEDS: Enoxaparin Sodium 40 MG/0.4 ML SYRINGE SC SCH (07:56)
[2019-04-23] MEDS: Famotidine 20 MG TAB PO SCH ×2 (07:57→20:21)
[2019-04-23] MEDS ORDERED: Aspirin 325 mg Enteric Coated Tablet PO SCH (09:00)
--- NOTE | 2019-04-23 11:49 | PRG ---
DATE OF SERVICE: 04/23/2019 Ms. Nair is a very pleasant 48-year-old white female with a 10-year history of probable type 2 diabetes. She also has a long history of GERD. She presented with some chest tightness that occurred in the [facility] ER. Her blood glucose at that time was noted to be very elevated and she was sent over for possibility of acute coronary syndrome. I believe it would be prudent given the fact that she is a diabetic of 10 years' duration and is 48 years old, and can have atypical symptoms with CAD that we perform stress Myoview. Job ID: [id number]
--- NOTE | 2019-04-23 16:54 | EKG ---
Test Reason : RHY CHANGE Blood Pressure : / mmHG Vent. Rate : 060 BPM Atrial Rate : 060 BPM P-R Int : 162 ms QRS Dur : 084 ms QT Int : 408 ms P-R-T Axes : 075 042 043 degrees QTc Int : 408 ms Normal sinus rhythm Normal ECG When compared with ECG of 02-JAN-2018 20:00, No significant change was found Confirmed by DR. Felisha FISH ([id number]) on 04/23/2019 4:53:48 PM Referred By: LAWRENCE Confirmed By:DR. Felisha FISH
[2019-04-23] MEDS: Rosuvastatin 10 MG TAB PO SCH (20:21)
[2019-04-23] MEDS: Stress 600 With Zinc 1 TAB PO SCH (20:21)
[2019-04-23] MEDS ORDERED: Multivitamin W/ Minerals 1 TAB PO SCH (21:00)
[2019-04-23] MEDS ORDERED: Aspirin Chewable 81 MG TAB PO SCH (21:00)
--- NOTE | 2019-04-24 06:06 | PDOC.FM ---
- Subjective Subjective: She had a little chest tightness yesterday, but it resolved when she was walking around. She is scheduled for the JEAN test 05/12. She slept well overnight. - Objective MAR Reviewed: Yes Vital Signs & Weight: Vital Signs (12 hours) Temp Pulse Resp BP Pulse Ox 04/24/19 04:00 98.5 F 60 16 96/53 L 98 04/23/19 23:49 97.9 F 65 16 98/54 L 98 04/23/19 19:52 98.2 F 59 L 16 102/51 L 99 Weight Weight 76.884 kg I&O: 04/22/19 04/23/19 04/24/19 06:59 06:59 06:59 Intake Total 3906 5710 Output Total 850 Balance 3906 4860 Result Diagrams: 04/23/19 05:46 04/23/19 05:46 Phys Exam - Physical Examination Constitutional: NAD HEENT: PERRLA, moist MMs, oral pharynx no lesions Neck: supple, full ROM Respiratory: clear to auscultation bilateral Cardiovascular: RRR, no significant murmur Gastrointestinal: soft, no distention, positive bowel sounds Musculoskeletal: no edema, pulses present Neurological: moves all 4 limbs Psychiatric: normal affect, A&O x 3 Skin: cap refill <2 seconds Dx/Plan (1) Chest pain Code(s): R07.9 - CHEST PAIN, UNSPECIFIED Status: Acute (2) GERD (gastroesophageal reflux disease) Code(s): K21.9 - GASTRO-ESOPHAGEAL REFLUX DISEASE WITHOUT ESOPHAGITIS Status: Acute (3) DM type 1 (diabetes mellitus, type 1) Status: Acute (4) Dehydration Code(s): E86.0 - DEHYDRATION Status: Acute - Plan Plan: Pt is a 48 yo F with history of DMI and GERD who presents for "chest tightness" that has worsened over the last month. 1. Chest pain, likely 2/2 GERD known problem of "chest tightness" that has worsened over the last month. Pt follows with cardiology. * No significant risk factors or FHx, other than DM1 * HEART score 2 * Pain mildy reproducible on exam. * EKG: [place] wnl & [place] wnl * Stress today * Trops: <.01 x2 * Protonix 40mg BID, Tums, and Maalox * GI cocktail, sucralfate in ED * Lipid panel: Trig 71, chol 136, LDL 63, HDL 59 * GI f/u oupt recommended 2. Dehydration Present on Physical exam * Will d/c fluids & monitor 3. DMI Admission B * Using insulin pump * BGs: 80s- 150s * UA: 1+ Lisa, otherwise neg 4. GERD * Pepcid Code Status: Full Diet: NPO @ Midnight for Stress DVT Prophylaxis: Lovenox Activity: As Tolerated PCP: Loyd Dispo: D/c today pending stress results Addendum - Attending - Attending Attestation Date/Time: 04/24/19 1240 I personally evaluated the patient and discussed the management with Dr. Espana. I agree with the History, Examination, Assessment and Plan documented above with any addition or exceptions noted below. Negative stress and patient asymptomatic. Will plan for d/c with f/u with Dr. Harp.
[2019-04-24] MEDS: Enoxaparin Sodium 40 MG/0.4 ML SYRINGE SC SCH (09:28)
[2019-04-24] MEDS: Famotidine 20 MG TAB PO SCH (10:34)
--- NOTE | 2019-04-24 11:04 | NM ---
EXAM: CARDIAC SPECT HISTORY: Chest pain TECHNIQUE: A myocardial perfusion scan was performed using the single isotope 2 day protocol with garo hnetium 99m sestamibi. [30 mCi] was injected intravenously for the rest exam followed by 30 mCi for the stress study. Exercise stress was monitored and interpreted by Dr. Palm FINDINGS: Homogeneous tracer distribution is seen in the myocardial segments on stress and rest image s without fixed or reversible defects. Gated SPECT LVEF: 79% Wall motion exam: Normal IMPRESSION: Normal myocardial perfusion scan
[2019-04-24 12:05] VITALS: BP 101/57; TEMP 98.2
--- NOTE | 2019-04-25 11:40 | DIS ---
DATE OF ADMISSION: 04/22/2019 DATE OF DISCHARGE: 04/24/2019 RESIDENT: Colt Steele MD ADMITTING ATTENDING: Leora Harp MD DISCHARGE ATTENDING: Rey Harris MD CONSULTS: None. PROCEDURES: * EKG (04/22): normal sinus rhythm and normal EKG. S * Stress test (04/23): normal myocardial perfusion scan. PRIMARY DIAGNOSES: 1. Hyperglycemia. 2. Chest pain, likely secondary to gastroesophageal reflux disease. SECONDARY DIAGNOSES: 1. Dehydration. 2. Diabetes. DISCHARGE MEDICATIONS: Discharged on home medications. DISCONTINUED MEDICATIONS: None. HISTORY OF PRESENT ILLNESS: Ms. Nair is a 48-year-old female with history of diabetes type 1, controlled with an insulin pump and difficult to treat GERD, who presents via direct admit from [place] for evaluation of chest tightness. During her workup in [place], an initial EKG was negative. Her blood glucose was found to be moderately elevated nearing 400, thus clouding the picture whether she is more at risk for ACS or DKA. When she got to the floor, a 2nd EKG was ordered, which showed no abnormalities and her 1st round of troponins were negative. She denied any worrisome cardiopulmonary symptoms as well as fevers, chills, abdominal pain, nausea, vomiting, or diarrhea. 1. Chest pain, likely secondary to GERD. Known problem of chest tightness that has worsened over the last month. * Patient follows with Cardiology. * No significant risk factors or family history other than diabetes type 1. * Heart score 2. * Pain mildly reproducible on exam. * EKG in [place] within normal limits and [place] within normal limits. * Stress normal as noted above. * Trops negative x2. * Protonix 40 mg b.i.d., Tums and Maalox. * GI cocktail and sulfacrate were given in the ED. 2. Dehydration. * Normal on exam today. 3. Diabetes type 1. * Admission blood glucose was 400. * Using her home insulin pump. * Blood sugars are 150s and less. * No ketones found in urine. 4. GERD. * Continue home medications for GERD. * Follow up with outpatient GI to have [place] test on May 12. DISPOSITION: Stable. DISCHARGE INSTRUCTIONS: * LOCATION: Home. * DIET: Heart healthy. * ACTIVITY: Ad [place]. * FOLLOWUP: Follow up with Dr. Harp within 7 days. Job ID: [id number] MTDD
== END 2019-04-24 13:54 | disposition home or self-care (01) ==
LOC: 2SW 14:13
PROVIDERS: ADMIT Family Medicine; ATTEND Family Medicine
DX: E10.65 Type 1 diabetes mellitus with hyperglycemia (principal); R07.89 Other chest pain; E86.1 Hypovolemia; E86.0 Dehydration; K21.9 Gastro-esophageal reflux disease without esophagitis; Z79.82 Long term (current) use of aspirin; Z79.899 Other long term (current) drug therapy; Z96.41 Presence of insulin pump (external) (internal)
CPT/HCPCS: 36415; 36416; 78452; 80053; 80061; 81001; 83001; 83002; 84443; 84484; 85025; 93005; 93010; 93017; 94760; 96360; 96361; A9500; G0378; J1650

== ENCOUNTER 2022-04-20 07:51 | Outpatient (CLI) | payer BC | END 2022-04-20 07:52 | disposition home or self-care (01) | LOC: BICULT 07:51 | PROVIDERS: ATTEND Obstetrics & Gynecology | DX: N63.41 Unspecified lump in right breast, subareolar (principal) ==